=== PATIENT | female | born 1960 | race Caucasian/White ===

== ENCOUNTER 2019-12-13 08:57 | Outpatient (CLI) | payer OTHER, SELFPAY ==
[2019-12-13 22:38] LABS: COVID-19 RT-PCR UVMMC Result Negative (Negative)
== END 2019-12-13 09:17 ==
PROVIDERS: PCP Nurse Practitioner Family; Visit Provider Student in an Organized Health Care Education/Training Program
DX: Z11.59 Encounter for screening for other viral diseases (principal); Z01.818 Encounter for other preprocedural examination
CPT/HCPCS: U0003

== ENCOUNTER 2019-12-17 09:17 | Day surgery (SDC) | payer OTHER, SELFPAY ==
--- NOTE | 2019-12-16 18:29 | HPE_ITS ---
Documented by User: Marilynnkristin Soriano 12/16/19 18:35 Assessment and Plan Assessment and plan (1) Trochanteric bursitis, right hip: Status: Acute (2) Tendinitis involving right hip abductors: Status: Acute Assessment and plan: Plan: Patient tested negative for Covid-19 on 12/13/2019. Patient reports that she has been in quarantine since being tested and denies contact with COVID-19 positive persons. Educated patient on surgery covering surgical technique, recovery process, benefits and risks including but not limited to risk of infection, blood clot, damage to soft tissue/blood vessels/nerves in detail. After discussion patient gives verbal understanding of risks and elects to proceed with scheduling surgery. Patient had opportunity to have questions answered to their sati sfaction. They will contact office if issues arise. Patient will continue to be scheduled for right IT band tenotomy, bursectomy and possible abductor tendon repair with associated procedures with Dr. Victor. History of Present Illness Narrative: Ms. Bush is a 59-year-old female who presents to hospital for scheduled right IT band tenotomy, bursa excision and possible abductor tendon repair with Dr. Victor. Patient was last seen orthopedic clinic in May at which time she denies symptoms for greater than 1 year. Pain is identified along the posterior lateral aspect of the right hip. Despite having Depo-Medrol injections and seeking the opinion of several local orthopedic specialists she has continued to have significant discomfort. Due to patient's significant discomfort for over a year despite adequate trials of therapies she was offered surgical intervention and elected to proceed. Review of Systems Cardiovascular Cardiovascular: Denies chest pain, Denies rapid heart rate, Denies irregular heart rhythm, Denies dyspnea and Denies slow heart rate Respiratory Respiratory: Denies cough and Denies dyspnea FOR[facility]LY [facility] Medical History GERD (gastroesophageal reflux disease) (Chronic) History of breast implant removal (Acute) Hypertension (Chronic) Surgical History Hx of cholecystectomy (Chronic) Hx of hysterectomy (Chronic) Hx of shoulder surgery (Chronic) RIGHT SIDE X 3 Social History Smoking/Tobacco Use Status: Never Alcohol Intake: current Alcohol Intake frequency: holidays/special occasions only Substance use type: does not use Details: CBD OIL Current gender identity: female Do you feel safe at home: Yes Do you feel safe in your relationship?: Yes Meds Home Medications and Allergies Home Medications Medication Instructions Recorded Confirmed Type lisinopril 10 mg tablet 10 mg PO DAILY 05/20/19 12/17/19 History omeprazole 20 mg capsule,delayed 20 mg PO DAILY 05/20/19 12/17/19 History release Hemp Oil PO QPM 12/17/19 History Allergies Allergy/AdvReac Type Severity Reaction Status Date / Time No Known Allergies Allergy Verified 12/17/19 09:29 Exam Const General: cooperative, healthy appearing and no acute distress Resp Effort & Inspection: normal respiratory effort and able to speak in complete sentences Auscultation: clear to auscultation bilaterally, no rales, no rhonchi and no wheezes Cardio Heart Sounds: S1 normal, S2 normal and no murmurs Documented by User: Sami Victor MD 12/17/19 10:25 Date of service: 12/17/19 Time of Service: 10:22 Assessment and Plan Assessment and plan (1) Trochanteric bursitis, right hip: Status: Acute Assessment and plan: Patria is a 59-year-old with recalcitrant trochanteric bursitis of the right hip. She also has an MRI which is suggestive of an abductor tendon tear. After failing conservative options I have offered her hip bursectomy, IT band lengthening, and abductor tendon repair if needed. I reviewed the technical aspects. I also discussed the possible risk, to include bleeding, infection, pain, stiffness, damage nerves and vessels, damage to muscle and tendons, blood clot. I also went over the necessary time for rehabilitation and recovery and the postoperative restrictions. She is in agreement this plan and desires to proceed. (2) Tendinitis involving right hip abductors: Status: Acute History of Present Illness History of Present Illness Chief Complaint: Right Hip Pain Narrative: Patria roblero s a 59yo who has had persistent right hip pain. She has failed multiple treatments including injections, PT, NSAIDs, and activity modification. She continues to have pain over the lateral and posterolateral aspect of the right hip. She denies numbness or tingling. [facility] Medical History GERD (gastroesophageal reflux disease) (Chronic) History of breast implant removal (Acute) Hypertension (Chronic) Surgical History Hx of cholecystectomy (Chronic) Hx of hysterectomy (Chronic) Hx of shoulder surgery (Chronic) RIGHT SIDE X 3 Social History Smoking/Tobacco Use Status: Never Alcohol Intake: current Alcohol Intake frequency: holidays/special occasions only Substance use type: does not use Details: CBD OIL Current gender identity: female Do you feel safe at home: Yes Do you feel safe in your relationship?: Yes Meds Home Medications and Allergies Home Medications Medication Instructions Recorded Confirmed Type lisinopril 10 mg tablet 10 mg PO DAILY 05/20/19 12/17/19 History omeprazole 20 mg capsule,delayed 20 mg PO DAILY 05/20/19 12/17/19 History release Hemp Oil PO QPM 12/17/19 History Allergies Allergy/AdvReac Type Severity Reaction Status Date / Time No Known Allergies Allergy Verified 12/17/19 09:29 Exam Extrem Other: Pain over the greater trochanter. No overlying skin changes or signs of infection.
[2019-12-17] VITALS (7 sets, daily range): BP systolic 112–142; BP diastolic 56–72; PULSE 58–65; RESP 12–18; TEMP 35.5–36.4; O2SAT 98–100
[2019-12-17] MEDS: Celecoxib 200 MG CAP 400 MG PO (09:52)
[2019-12-17] MEDS: Acetaminophen 500 MG TAB 1000 MG PO (09:52)
[2019-12-17] MEDS: Lactated Ringers 1,000 ML 80 ML IV (10:05)
[2019-12-17] MEDS: ceFAZolin 2 GM/50 ML BAG IVPB (10:29)
[2019-12-17] MEDS: Bupivacaine 0.25% Pres-Free 30 ML VIAL (11:00)
--- NOTE | 2019-12-17 12:00 | PDOC.DSDIS_ITS ---
Discharge Plan Disposition Patient Disposition: HOME Condition: Good Discharge Details Reason For Visit: R Trochanteric Bursitis Attending Provider: Sami Victor Primary Care Provider: Mehdi Casillas Home Meds and New Rx's Prescriptions: New hydrocodone-acetaminophen 5-325 mg tablet 1 tab PO Q4H PRN (Reason: pain) Qty: 14 RF: 0 aspirin 81 mg tablet,delayed release (DR/EC) 81 mg PO DAILY Qty: 30 RF: 0 acetaminophen 500 mg tablet 500 mg PO Q6H PRN PRN (Reason: pain) Qty: 60 RF: 3 ibuprofen 600 mg tablet 600 mg PO TID PRNQty: 90 RF: 3 Continued lisinopril 10 mg tablet 10 mg PO DAILY RF: 0 omeprazole 20 mg capsule,delayed release(DR/EC) 20 mg PO DAILY RF: 0 Hemp Oil PO QPM RF: 0 Discharge Instructions Additional Instructions: Activity: You may move and walk as tolerated but always use two crutches or a walker until instructed otherwise. You should try to take short walks a few times a day. You have no restrictions on movement or positioning, but do not try to force what you do. You will find some stiffness and weakness. Do not try to strengthen this too early, continue to practice walking. - Outpatient physical therapy can be helpful to help return you to a normal gait and improve your flexibility and strength. This can start around 2 weeks. For some patients, it?s not necessary. Usually this is determined at the time of discharge or at the first post-operative visit. Dressing: Keep the surgical dressing in place for at least one week. After the first week it may be removed and replace with light gauze and tape or nothing. It may get wet after 3 days but avoid soaking the dressing. If it gets wet, just lightly pat dry. Medications: - You should take Tylenol and an anti-inflammatory Ibuprofen as your primary pain control medications - You have been prescribed a stronger pain medication Hydrocodone for breakthrough pain, take as needed as prescribed. - If you have constipation you should take Colace or Miralax (both [id number]). It takes most people 3-4 days to have a bowel movement. Follow-up: 2 weeks Referrals: Sami Victor MD [ [facility] STAFF PHYSICIAN] - Equipment/Supplies: Partial Weight Bearing Crutches Activity:: Activity as Tolerated Remove Dressings/Wound Care:: 72 hours Shower/Bathe:: 72 hours Diet:: As Tolerated Discharge Orders Discharge Orders: Discharge Order (Routine); Ordered 12/17/19 Ordered By: Sami Victor DS: Diagnosis Discharge Diagnosis (1) Trochanteric bursitis, right hip: Status: Acute (2) Tendinitis involving right hip abductors: Status: Acute
[2019-12-17] MEDS: HYDROcodone 5/Acetaminophen 325 TAB PO (13:19)
--- NOTE | 2019-12-17 18:31 | ROE_ITS ---
Date of service: 12/17/19 Time of Service: 10:31 Operative Note Operative Note DATE OF PROCEDURE: 12/17/19 PRE-OP DIAGNOSIS: Recalcitrant Trochanteric Bursitis, RIGHT POST-OP DIAGNOSIS: other (Right trochanteric bursitis and abductor tendon tear) PROCEDURE: Open Debridement/Excision of RIGHT Trochanteric Bursa and Iliotibial Band Tenotomy and Abductor Tendon Repair SURGEON: Sami Victor LIBRARY INFORMATION TECHNICIAN: Wong Macdams LIBRARY INFORMATION TECHNICIAN: Marilynn Soriano ANESTHESIA: GETA ESTIMATED BLOOD LOSS: 100 PATHOLOGY: none sent COMPLICATIONS: None Patient was transported to: PACU Patient's condition: stable Indications: Patria is a 59 year old female who I have seen for recurrent symptoms of lateral hip pain. A diagnosis of trochanteric bursitis was made. Conservative treatment options were employed first. However, pain continued. After failure of conservative treatment options, I recommended surgical intervention. I reviewed the technical details of the surgery. I reviewed the risk of the surgery to include bleeding, infection, pain, stiffness, damage to nerves and vessels, damage to muscles and tendons, blood clot. Despite these risks, Patria desired to proceed. Findings: The iliotibial band was significantly tight. The bursa was inflamed and excised and debrided. There was a partial tear of the anterior abductors which were repaired with a single Mitek Fastin anchor in the greater trochanter. Iliotibial band was lengthened with a cruciate style tenotomy. Procedure Description: Patria was greeted in the preoperative holding area. The identity was confirmed with the correct site and side. The consent was reviewed with the patient and signed. History and physical was updated. The patient was taken back to the operating room. A general anesthetic was administered. The patient was then positioned into the left lateral decubitus position for access to the right hip. All bony prominences well-padded. The right hip was prepped with ChloraPrep and draped in a standard fashion. Prophylactic antibiotics in t he form of Cefazolin were administered. A timeout was performed for safe surgery. An approximately 10 cm incision was made overlying the posterior lateral hip. This was centered over the vastus ridge extending just proximal to the tip of the greater trochanter. The skin was incised sharply. Bleeding was stopped with light cautery. The iliotibial band was identified and cleared for better visualization. It was noted to be quite taut against the lateral femur. The iliotibial band was then incised longitudinally extending into the gluteus fascia and extending distally along the IT band. This was split bluntly and a Charnley retractor was inserted. We had excellent visualization of the lateral femur and the trochanteric bursa. There was notable bursitis with an enlarged and inflamed bursa. This was excised sharply with electrocautery and remnants debrided with a rongeur. Once this was fully removed we had excellent visualization of the insertion of the abductor tendons. They were inspected both visually and by palpation on both the deep and superficial surfaces. There was an area of the greater trochanter which was exposed. This was anterior from 1-3 o'clock. The tendons were attached but there seemed to be a partial tear and a small area of a full-thickness tearing. This was debrided and a single Mitek 5.0mm Fastin Titatinium anchor was placed. A horizontal mattress suture was placed in the tendon of the abductors over lying this exposed section to reapproximate down to bone after the bone was roughened. The deep structures were then thoroughly irrigated. The deep tissues were injected with a mixture of 0.5% bupivacaine and 20 cc of Exparel. The iliotibial band was then closed with a #1 Vicryl. Once the longitudinal split was closed completely the point of maximal tightness was incised transversely. This was done between sutures allowing for some the longitudinal split open as well creating a cruciate style tenotomy for lengthening. Once again the deep tissues and iliotibial band were injected with the remainder of the bupivacaine Exparel cocktail. The wound was thoroughly irrigated. The deep tissues were closed with 0 Vicryl followed by 2-0 Vicryl. The skin was closed with a 4-0 Monocryl in a running subcuticular fashion which was reinforced with skin glue and Steri-Strips. The wound was dressed with Mepilex silver dressing. At the end of the case all counts are correct. The patient was transitioned back into the supine position. There were no notable complications. The patient was transferred to the PACU in stable condition.
== END 2019-12-17 14:09 | disposition home or self-care (01) ==
PROVIDERS: PCP Nurse Practitioner Family; Visit Provider Student in an Organized Health Care Education/Training Program
PROC: (CPT 27062; principal; 2019-12-17 10:15)
PROC: (CPT 27062; 2019-12-17 10:15)
DX: M70.61 Trochanteric bursitis, right hip (principal); S76.211A Strain of adductor muscle, fascia and tendon of right thigh, initial encounter; X58.XXXA Exposure to other specified factors, initial encounter; K21.9 Gastro-esophageal reflux disease without esophagitis
CPT/HCPCS: 27062; 27305; C1713; NC; J0690; J1100; J1885; J2250; J2405; J2704

== ENCOUNTER 2023-02-03 10:20 | Outpatient (CLI) | payer OTHER, SELFPAY ==
--- NOTE | 2023-02-03 09:01 | DI.RAD_ITS ---
Exam(s) XR HIP RT COMPLETE AP PELVIS EXAM: XR HIP RT COMPLETE AP PELVIS CLINICAL HISTORY: right hip pain. TECHNIQUE: 2D digital imaging was performed. COMPARISON: CR,DX XR HIP RT LAT 1VW W/PELVIS from 03/14/2018 FINDINGS: 3 views No evidence of pelvic nor hip fracture. There is a fastener device in the greater trochanter of the right hip noted, not evident on the image s February 2018. Possibly related to tendon reattachment surgery. No evidence of osteomyelitis. There is no obvious degenerative narrowing of the hip joint spaces. No osseous lesions. Bone densit y normal. IMPRESSION: No acute osseous findings. Evidence of previous surgery in the right hip. DATA REPOSITORY: RADIATION DOSE DELIVERED:
== END 2023-02-03 10:21 | disposition home or self-care (01) ==
LOC: DIORS 10:21
PROVIDERS: PCP Nurse Practitioner Family; Referring Provider Nurse Practitioner Family; Visit Provider Physician Assistant
DX: Z98.890 Other specified postprocedural states; M70.61 Trochanteric bursitis, right hip
CPT/HCPCS: 73502